=== PATIENT | male | born 1990 | race African-American/Black ===

== ENCOUNTER 2018-04-13 13:13 | Emergency (ER) | payer OTHER ==
[~2018-04-13] VITALS: Ht 172.7 cm; Wt 118.8 kg
[2018-04-13 13:17] VITALS: BP 122/85
--- NOTE | 2018-04-13 15:13 | RADIOLOGY REPORT ---
EXAMINATION: XR RIBS, RIGHT. XR CHEST 2 VIEWS. CLINICAL INFORMATION: Tender to palpation right posterior ribs. COMPARISON: None TECHNIQUE: 3 views of the right ribs were obtained. FINDINGS: Lungs are clear. No consolidation, pneumothorax, or pleural effusion. The cardiomediastinal silhouette and pulmonary vasculature are normal. Osseous structures are unremarkable. Ribs are intact. No fractures are identified. IMPRESSION: Unremarkable examination.
--- NOTE | 2018-04-13 15:13 | RADIOLOGY REPORT ---
EXAMINATION: XR THORACIC SPINE CLINICAL INFORMATION: Tender to palpation: Midline. COMPARISON: None TECHNIQUE: AP and lateral views of the thoracic spine. FINDINGS: There is no fracture or bone destruction seen and the vertebral alignment is normal. There is no disc space narrowing. There is no abnormality of the paraspinal soft tissues. IMPRESSION: Unremarkable examination.
[2018-04-13] MEDS ORDERED: NAPROSYN500 M1 PO (15:19)
[2018-04-13] MEDS ORDERED: LIDODERM1 EACH TOP (15:19)
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
== END 2018-04-13 15:23 ==
LOC: ERH 13:13
DX: M54.9 Dorsalgia, unspecified (principal)
CPT/HCPCS: 71046; 71100-RT; 72070